=== PATIENT | female | born 1950 | race Caucasian/White ===

== ENCOUNTER 2018-12-26 17:13 | Outpatient (REF) | payer MEDICARE, SELFPAY ==
[2018-12-26 21:42] LABS: ALT 28 U/L (12-78); BUN 12 mg/dL (7-18); CREATININE 0.89 mg/dL (0.55-1.02); Calcium 9.3 mg/dL (8.5-10.1); Chloride 103 mmol/L (98-107); Glucose 122 mg/dL (70-100); Potassium 3.7 mmol/L (3.5-5.1); Sodium 141 mmol/L (136-145)
== END 2018-12-26 17:33 ==
LOC: NCHCN 17:13
PROVIDERS: PCP Family Medicine; Visit Provider Family Medicine
DX: I10 Essential (primary) hypertension (principal); R78.5 Finding of other psychotropic drug in blood
CPT/HCPCS: 80048; 84460

== ENCOUNTER 2020-07-27 19:51 | Outpatient (REF) | payer MEDICARE, SELFPAY ==
[2020-07-27 20:54] LABS: HCT 46.3 % (36.0-46.0); HGB 15.5 g/dL (11.2-15.7); MCH 31.8 pg (27.0-33.0); MCHC 33.5 % (32.0-36.0); MCV 95.1 fL (80-95); MPV 10.3 fL (8.0-11.0); Platelet Count 208 10^3/uL (130-400); RBC 4.87 10^6/uL (3.93-5.22); RDW 13.5 % (11.7-14.6); RDW-SD 47.7 fL; WBC 6.99 10^3/uL (4.4-10.8)
[2020-07-27 21:22] LABS: ALT 25 U/L (14-59); AST 16 U/L (15-37); Albumin 4.1 g/dL (3.4-5.0); Alkaline Phosphatase 85 U/L (46-116); BUN 13 mg/dL (7-18); Bilirubin, Total 0.8 mg/dL (0.2-1.0); CREATININE 0.76 mg/dL (0.55-1.02); Calcium 9.1 mg/dL (8.5-10.1); Chloride 102 mmol/L (98-107); Glucose 95 mg/dL (74-106); Potassium 3.8 mmol/L (3.5-5.1); Sodium 138 mmol/L (136-145); TSH (W/Ref FT4) 2.51 uIU/mL (0.36-3.74); Total Protein 7.9 g/dL (6.4-8.2)
== END 2020-07-27 20:11 ==
LOC: NCHCN 19:51
PROVIDERS: PCP Family Medicine; Visit Provider Family Medicine
DX: R63.4 Abnormal weight loss (principal); R49.0 Dysphonia
CPT/HCPCS: 80053; 85027; 84443; 85025

== ENCOUNTER 2021-03-31 08:22 | Outpatient (REF) | payer MEDICARE, SELFPAY ==
[2021-03-31 13:31] LABS: Calculated LDL 61 mg/dL (<100); Cholesterol 152 mg/dL (<200); HDL Cholesterol 69 mg/dL (40-60); Triglyceride 113 mg/dL (<150)
== END 2021-03-31 08:23 | disposition home or self-care (01) ==
LOC: NCHCN 08:22
PROVIDERS: PCP Family Medicine; Visit Provider Internal Medicine
DX: I25.10 Atherosclerotic heart disease of native coronary artery without angina pectoris (principal)
CPT/HCPCS: 80061

== ENCOUNTER 2022-08-22 16:04 | Outpatient (REF) | payer MEDICARE, SELFPAY ==
[2022-08-22 20:47] LABS: HCT 48.7 % (36.0-46.0); HGB 16.6 g/dL (11.2-15.7); MCH 32.3 pg (27.0-33.0); MCHC 34.1 % (32.0-36.0); MCV 95 fL (80-95); MPV 10.7 fL (8.0-11.0); Platelet Count 198 10^3/uL (130-400); RBC 5.14 10^6/uL (3.93-5.22); RDW 13.6 % (11.7-14.6); RDW-SD 47.8 fL; WBC 5.13 10^3/uL (4.4-10.8)
[2022-08-22 20:50] LABS: ALT 45 U/L (14-59); AST 40 U/L (15-37); Albumin 4.1 g/dL (3.4-5.0); Alkaline Phosphatase 88 U/L (46-116); Anion Gap 5.8 mmol/L (3-11); BUN 13 mg/dL (7-18); Bilirubin, Total 0.7 mg/dL (0.2-1.0); CO2 30.2 mmol/L (21.0-32.0); CREATININE 0.8 mg/dL (0.55-1.02); Calcium 8.9 mg/dL (8.5-10.1); Chloride 103 mmol/L (98-107); Estimated GFR 77.75 (mL/min/1.73m2); Glucose 101 mg/dL (74-106); Potassium 3.7 mmol/L (3.5-5.1); Sodium 139 mmol/L (136-145); Total Protein 7.8 g/dL (6.4-8.2)
== END 2022-08-22 16:05 | disposition home or self-care (01) ==
LOC: NCHCN 16:04
PROVIDERS: PCP Family Medicine; Visit Provider Family Medicine
DX: R53.83 Other fatigue (principal); R63.4 Abnormal weight loss
CPT/HCPCS: 80053; 85027

== ENCOUNTER 2024-05-30 21:25 | Outpatient (REF) | payer MEDICARE, SELFPAY ==
[2024-05-30 21:57] LABS: Hemoglobin A1C 5.8 % (<5.7)
[2024-05-30 22:00] LABS: ALT 30 U/L (14-59); AST 23 U/L (15-37); Alkaline Phosphatase 97 U/L (46-116); Anion Gap 7.8 mmol/L (3-11); BUN 15 mg/dL (7-18); Bilirubin, Total 0.79 mg/dL (0.2-1.0); CO2 29.2 mmol/L (21.0-32.0); CREATININE 0.8 mg/dL (0.55-1.02); Calcium 9.6 mg/dL (8.5-10.1); Calculated LDL 45 mg/dL (<100); Chloride 105 mmol/L (98-107); Cholesterol 143 mg/dL (<200); Estimated GFR 77.27 (mL/min/1.73m2); Glucose 119 mg/dL (74-106); HDL Cholesterol 79 mg/dL (40-60); Potassium 4.1 mmol/L (3.5-5.1); Sodium 142 mmol/L (136-145); Total Protein 7.9 g/dL (6.4-8.2); Triglyceride 97 mg/dL (<150)
== END 2024-05-30 21:26 | disposition home or self-care (01) ==
LOC: NCHCN 21:25
PROVIDERS: PCP Family Medicine; Visit Provider Family Medicine
DX: R73.03 Prediabetes (principal)
CPT/HCPCS: 80053; 80061; 83036